=== PATIENT | female | born 1965 | race Caucasian/White ===

== ENCOUNTER 2018-06-17 23:22 | Emergency (ER) | payer SELFPAY ==
[~2018-06-17] VITALS: Ht 162.6 cm; Wt 63.5 kg
[2018-06-17 23:54] LABS: BASOPHILS # (AUTO) 0.1 (0.0-0.1); BASOPHILS % 0.9 % (0.0-1.0); EOSINOPHILS # (AUTO) 0.2 (0.0-0.4); EOSINOPHILS % 3.1 % (0.0-6.0); HEMATOCRIT 40.9 % (34.2-44.1); HEMOGLOBIN 14.5 g/dL (12.0-16.0); LYMPHOCYTES # (AUTO) 3.3 (1.0-3.2); MEAN CORPUSCULAR HEMOGLOBIN 34.6 pg (28-32); MEAN CORPUSCULAR HGB CONC 35.5 g/dL (31-35); MEAN CORPUSCULAR VOLUME 97.6 fL (81-99); MONOCYTES # (AUTO) 0.7 (0.2-0.8); MONOCYTES % 9.6 % (4.4-11.3); NEUTROPHILS # (AUTO) 3.1 (2.1-6.9); NEUTROPHILS % 42.3 % (38.7-80.0); PLATELET COUNT 227 x10e3/uL (140-360); RED BLOOD COUNT 4.19 x10e6/uL (3.6-5.1); RED CELL DISTRIBUTION WIDTH 12.5 % (11.7-14.4)
[2018-06-18 00:15] LABS: CREATINE KINASE MB < 1.00 ng/mL (0-4.3)
[2018-06-18 00:19] LABS: ALANINE AMINOTRANSFERASE 21 IU/L (0-55); ALBUMIN 3.9 g/dL (3.5-5.0); ALBUMIN/GLOBULIN RATIO 1.1 (0.8-2.0); ALKALINE PHOSPHATASE 92 IU/L (40-150); ANION GAP 18.7 mmol/L (8-16); BLOOD UREA NITROGEN < 5 mg/dL (7-26); CALCIUM 9.5 mg/dL (8.4-10.2); CARBON DIOXIDE 21 mmol/L (22-29); CHLORIDE 106 mmol/L (98-107); CREATINE KINASE 64 IU/L (29-168); EST GLOMERULAR FILTRATION RATE > 60 ML/MIN (60-); GLUCOSE 108 mg/dL (74-118); SODIUM 143 mmol/L (136-145)
[2018-06-18 00:20] LABS: ACETAMINOPHEN < 3 ug/mL (10-30); BUN/CREATININE RATIO 7 (6-25); SALICYLATE < 5.0 mg/dL (0-30)
[2018-06-18 00:22] LABS: POTASSIUM 2.7 mmol/L (3.5-5.1)
== END 2018-06-18 00:30 | disposition left against medical advice (07) ==
LOC: ER 23:22
DX: R05 Cough (principal); F10.220 Alcohol dependence with intoxication, uncomplicated; I10 Essential (primary) hypertension; K21.9 Gastro-esophageal reflux disease without esophagitis; F17.210 Nicotine dependence, cigarettes, uncomplicated
CPT/HCPCS: 36415; 80053; 80320; 80329; 82140; 82550; 82553; 84484; 85025; 99282

== ENCOUNTER 2022-11-25 16:42 | Emergency (ER) | payer SELFPAY ==
[~2022-11-25] VITALS: Ht 162.6 cm; Wt 63.5 kg
[2022-11-25] MEDS ORDERED: AMOXICILLIN500 MG PO (17:04)
[2022-11-25] MEDS ORDERED: IBUPROFEN600 MG PO (17:04)
== END 2022-11-25 17:11 | disposition home or self-care (01) ==
LOC: ER 16:51
DX: R50.9 Fever, unspecified (principal); K08.89 Other specified disorders of teeth and supporting structures; K02.9 Dental caries, unspecified
CPT/HCPCS: 99282